=== PATIENT | female | born 1945 | race Caucasian/White ===

== ENCOUNTER 2017-05-21 16:31 | Emergency (ER) | payer MEDICARE, OTHER ==
[2017-05-21 17:22] LABS: BASOPHIL 0.1 % (0-2); EOSINOPHIL 0.2 % (0-7); HCT 42.7 % (37.0-47.0); HGB 15.1 g/dl (12.5-16.0); LYMPHOCYTE 32.5 % (15-48); MCH 30.3 pg (25.0-31.0); MCHC 35.4 g/dL (32.0-36.0); MCV 85.7 fL (78.0-100.0); MONOCYTE 18.8 % (0-12); MPV 10.3 fL (6.0-9.5); NEUTROPHIL 48.4 % (41-80); PLT 311 K/uL (150-400); RBC 4.98 M/uL (4.20-5.40); RDW 12.6 % (11.5-14.0); WBC 8.9 K/uL (4.0-10.5)
[2017-05-21 17:41] LABS: ALBUMIN 3.8 g/dL (3.4-4.8); BILIRUBIN - TOTAL 0.6 mg/dL (0.1-1.0); CREATININE 0.7 mg/dL (0.5-1.0); GLOBULIN (CALCULATION) 3.1 g/dL (2.2-4.2); POTASSIUM 3.5 mmol/L (3.5-5.1); TOTAL PROTEIN 6.9 g/dL (6.4-8.3)
[2017-05-21 19:28] LABS: BILIRUBIN NEGATIVE (NEGATIVE); BLOOD NEGATIVE Ery/uL (NEGATIVE); CLARITY CLEAR (CLEAR); COLOR YELLOW (YELLOW); GLUCOSE (U) NORMAL (NORMAL); KETONE (U) NEGATIVE (NEGATIVE); LEUKOCYTES NEGATIVE Leu/uL (NEGATIVE); NITRITE NEGATIVE (NEGATIVE); PROTEIN NEGATIVE (NEGATIVE); UROBILINOGEN 0.2 mg/dL (0.2-1.0)
== END 2017-05-21 20:47 | disposition home or self-care (01) ==
LOC: FER 16:31
PROVIDERS: Nurse Practitioner Family
DX: S80.00XA Contusion of unspecified knee, initial encounter (principal); R41.0 Disorientation, unspecified; M54.6 Pain in thoracic spine; M54.5 Low back pain; R42 Dizziness and giddiness; I10 Essential (primary) hypertension; E78.5 Hyperlipidemia, unspecified; Z86.73 Personal history of transient ischemic attack (TIA), and cerebral infarction without residual deficits; Z88.0 Allergy status to penicillin; Z88.2 Allergy status to sulfonamides; Z88.5 Allergy status to narcotic agent; Z79.899 Other long term (current) drug therapy; W19.XXXA Unspecified fall, initial encounter; Y92.009 Unspecified place in unspecified non-institutional (private) residence as the place of occurrence of the external cause
CPT/HCPCS: 36415; 70450; 74000; 80053; 81003; 82150; 83690; 84484; 85025; 93005